=== PATIENT | female | born 1955 | race Caucasian/White ===

== ENCOUNTER 2018-01-08 08:19 | Outpatient (CLI) | payer BC | END 2018-01-08 08:20 | disposition home or self-care (01) | LOC: DI 08:19 | PROVIDERS: ATTEND Physician Assistant | DX: R01.1 Cardiac murmur, unspecified (principal) | CPT/HCPCS: 93306 ==

== ENCOUNTER 2019-05-05 07:31 | Outpatient (CLI) | payer BC ==
[2019-05-05] MEDS ORDERED: IOVERSOL 320 50 ML VIAL ONE (07:47)
[2019-05-05] MEDS ORDERED: IOVERSOL 320 100 ML VIAL IVP ONE ×3 (07:47→11:34)
[2019-05-05] MEDS ORDERED: IOVERSOL 320 50 ML VIAL PO ONE (11:34)
--- NOTE | 2019-05-05 12:23 | XRAY Report ---
Reason: ABD PAIN, COUGH Procedure Date: 05/05/2019 Accession Number: [id number] / [id number] Procedure: XR - Chest 2 View X-Ray CPT Code: 76402 FULL RESULT: EXAM: CHEST RADIOGRAPHY EXAM DATE: 05/05/2019 07:45 AM. CLINICAL HISTORY: ABD PAIN, COUGH. COMPARISON: None. TECHNIQUE: 2 views. FINDINGS: Lungs/Pleura: No focal opacities evident. No pleural effusion. No pneumothorax. Normal volumes. Mediastinum: Heart and mediastinal contours are unremarkable. Other: Mild S-shaped thoracolumbar scoliosis with slight degenerative change. IMPRESSION: Clear lungs. No acute findings. RADIA
--- NOTE | 2019-05-06 16:37 | CT Report ---
Reason: ABD PAIN, COUGH Procedure Date: 05/05/2019 Accession Number: [id number] / [id number] Procedure: CT - Abdomen/Pelvis W CPT Code: FULL RESULT: EXAM: CT ABDOMEN AND PELVIS EXAM DATE: 05/05/2019 09:25 AM. CLINICAL HISTORY: ABD PAIN, COUGH. COMPARISONS: ABDOMEN/PELVIS W/ 05/05/2019 8:55 AM. TECHNIQUE: Routine helical CT imaging was performed through the abdomen and pelvis. IV contrast: OPTI 320 150ML. Enteric contrast: No. Reconstructions: Coronal and sagittal. In accordance with CT protocol optimization, one or more of the following dose reduction techniques were utilized for this exam: automated exposure control, adjustment of mA and/or KV based on patient size, or use of iterative reconstructive technique. FINDINGS: Lung Bases: Unremarkable. Liver: Normal. No masses. Gallbladder/Bile Ducts: Unremarkable. Spleen: Normal. Pancreas: Normal. Adrenal Glands: Normal. Kidneys: Bilateral parapelvic cysts No masses or hydronephrosis. Peritoneal Cavity/Bowel: No free fluid, free air or adenopathy. No masses or acute inflammatory process. The appendix is not seen but there are no secondary signs of appendicitis.. Pelvic Organs: The bladder and pelvic organs are within normal limits. Vasculature: No aneurysms or other significant abnormality. Bones: Degenerative grade 1 anterior listhesis L4 on L5 with disk space narrowing at this level. Additional disk space narrowing L2-L3. Other: No anterior abdominal wall hernia. IMPRESSION: No acute findings or obvious explanation for pain abdomen and pelvis CT. Incidental note made of degenerative L4 anterior listhesis on L5. RADIA
== END 2019-05-05 07:32 | disposition home or self-care (01) ==
LOC: DI 07:31
PROVIDERS: ATTEND Physician Assistant
DX: R05 Cough (principal); R10.9 Unspecified abdominal pain
CPT/HCPCS: 71046; 74177; Q9967

== ENCOUNTER 2020-04-12 13:38 | Outpatient (CLI) | payer MEDICARE, BC ==
--- NOTE | 2020-04-12 17:43 | XRAY Report ---
PROCEDURE: Foot 3 View LT INDICATIONS: PAIN IN LEFT FOOT TECHNIQUE: 3 views of the foot were acquired. COMPARISON: None FINDINGS: Bones: No fractures or dislocations. No suspicious bony lesions. All dorsal and plantar calcaneal b one spurs. Mild midfoot osteoarthritis. Soft tissues: No tibiotalar joint effusion. Achilles tendon appears normal. IMPRESSION: 1. Mild mid foot osteophytosis. 2. Calcaneal bone spurs. 3. No fracture. No acute osseous lesion. If there is continued clinical concern for pathology, then r epeat plain film radiographs (7-10 days) or advanced imaging (CT, MR, bone scan) should be considered for further evaluation. Reviewed by: Jessica Pleitez MD, PhD on 04/12/2020 5:42 PM PDT Approved by: Jessica Pleitez MD, PhD on 04/12/2020 5:42 PM PDT Station ID: [id number]
== END 2020-04-12 13:39 | disposition home or self-care (01) ==
LOC: DI 13:38
PROVIDERS: ATTEND Nurse Practitioner Family
DX: M25.775 Osteophyte, left foot (principal); M77.32 Calcaneal spur, left foot

== ENCOUNTER 2022-05-19 14:19 | Outpatient (CLI) | payer MEDICARE, BC ==
--- NOTE | 2022-05-19 15:20 | DEXA Report ---
PROCEDURE: Dexa Spine and/or Hip INDICATIONS: POSTMENOPAUSAL TECHNIQUE: Dual energy x-ray absorptiometry (DXA) was performed on a [employer] System. Regions measur ed are the AP Spine, femoral neck, and if needed forearm. COMPARISON: None. FINDINGS: Lumbar Spine: Bone Mineral Density 1.456 g/cm/cm,T score 2.3, normal Left Hip: Bone Mineral Density 1.196 g/cm/cm,T score 1.5, normal Left Femoral Neck: Bone Mineral Density 1.089 g/cm/cm, T score 0.4, normal (T score greater or equal to -1.0: NORMAL) (T score from -1.1 to -2.4: OSTEOPENIA) (T score less than or equal to -2.5 to: OSTEOPOROSIS) Impression: Normal bone mineral density. Patients with diagnosis of osteoporosis or osteopenia should have regular bone mineral density assess ment. For those eligible for Medicare, routine testing is allowed once every 2 years. Testing frequ ency can be increased for patients who have rapidly progressing disease or for those who are receivin g medical therapy to restore bone mass. Reviewed by: Mounika Eden MD on 05/19/2022 3:19 PM PDT Approved by: Mounika Eden MD on 05/19/2022 3:19 PM PDT Station ID: [id number]
== END 2022-05-19 14:20 | disposition home or self-care (01) ==
LOC: DI 14:19
PROVIDERS: ATTEND Registered Nurse
DX: Z78.0 Asymptomatic menopausal state (principal)

== ENCOUNTER 2022-05-19 14:21 | Outpatient (CLI) | payer MEDICARE, BC ==
--- NOTE | 2022-05-22 10:04 | Mammography Report ---
BILATERAL DIGITAL SCREENING MAMMOGRAM 3D/2D: 05/19/2022 CLINICAL: Routine screening. Comparison is made to exams dated: 06/20/2017 mammogram and 08/19/2013 mammogram - [facility]. Both breasts are heterogeneously dense, which may obscure small masses (category c / 51-75% glandula r tissue). There are benign calcifications in the right breast. No significant masses, calcifications, or other findings are seen in either breast. There has been no significant interval change. IMPRESSION: BENIGN There is no mammographic evidence of malignancy. A 1 year screening mammogram is recommended. Based on the Tyrer Cuzick model (a risk assessment model) the patients lifetime risk is 10.5% and he r 10 year risk is 5.5%. According to the ACR, ACS, and NCCN guidelines, an annual breast MRI exam shauna ng with mammogram is recommended if the patients lifetime risk is 20% or greater. This exam was interpreted at Station ID: [id number]. NOTE: For mammograms, a report in lay terms will be sent to the patient. Approximately 15% of breast malignancies will not be visualized mammographically. In the management of a palpable breast mass, a negative mammogram must not discourage biopsy of a clinically suspicious lesion. Electronically Signed By: Joy madison/loli:05/19/2022 17:27:29 ACR BI-RADS Category 2: Benign Finding(s) 3342F PARENCHYMAL PATTERN: (D) - The breast(s) demonstrate(s) heterogeneously dense fibroglandular parcuate ma. BI-RADS CATEGORY: (2) - 2 RECOMMENDATION: (ANNUAL) - Recommend routine annual screening mammography. [id number] 1 year screening LATERALITY: (B)
== END 2022-05-19 14:22 | disposition home or self-care (01) ==
LOC: DI 14:21
PROVIDERS: ATTEND Registered Nurse
DX: Z12.31 Encounter for screening mammogram for malignant neoplasm of breast (principal)

== ENCOUNTER 2023-01-08 11:53 | Outpatient (CLI) | payer MEDICARE, BC ==
[2023-01-08] MEDS ORDERED: iohexoL-300 100 ML VIAL ONE (13:26)
[2023-01-08] MEDS ORDERED: DIATRIZOATE MEGLU/DIATRIZO SOD 30 ML BOTTLE PO ONE (15:13)
[2023-01-08] MEDS ORDERED: iohexoL-300 100 ML VIAL IVP ONE (15:14)
--- NOTE | 2023-01-13 23:51 | CT Report ---
PROCEDURE: ABDOMEN/PELVIS W INDICATIONS: ABN ADM CT CONTRAST: 100ml Omnipaque 300 TECHNIQUE: After the administration of oral and intravenous contrast, 5 mm thick sections acquired from the diap hragms to the symphysis. 5 mm thick coronal and sagittal reformats were acquired. For radiation dos e reduction, the following was used: automated exposure control, adjustment of mA and/or kV accordin g to patient size. COMPARISON: Report from CT abdomen pelvis 08/28/2022. CT abdomen pelvis 05/05/2019. FINDINGS: Image quality: Excellent. Lung bases and heart: Punctate pulmonary nodule in the left lower lobe, unchanged. No pleural effusio n. Liver: No solid mass. Gallbladder and biliary tree: No radiopaque stones or wall thickening. No biliary dilation. Spleen: No splenomegaly. Small splenules. Pancreas: No pancreatic ductal dilation. No peripancreatic fluid collection. Adrenals: No adrenal nodule. Kidneys and ureters: No convincing hydronephrosis. Bilateral peripelvic cysts. No solid mass. Bowel and peritoneum: No small bowel obstruction. No significant diverticulosis. Somewhat prominent s tool in the colon. The visualized portions of the appendix are dilated, (3/58). The appendix appears similar to 2019. The stomach is not distended. No ascites. Lymph nodes: No central or retroperitoneal adenopathy. Vessels: No infrarenal aortic aneurysm. PELVIS Reproductive organs: Anteverted uterus. Bladder: No abnormal wall thickening, accounting for underdistention. Pelvic lymph nodes: No pelvic adenopathy by size criteria. Bones: No aggressive osseous abnormality. DDD. Other: No significant ventral or inguinal hernia. IMPRESSION: 1. Visualized portions of the appendix are not dilated. No acute inflammatory change. No free fluid. 2. Benign renal peripelvic cysts. Reviewed by: Tavon Hodgson MD on 01/13/2023 11:50 PM PDT Approved by: Tavon Hodgson MD on 01/13/2023 11:50 PM PDT Station ID: [id number]
== END 2023-01-08 11:54 | disposition home or self-care (01) ==
LOC: DI 11:53
PROVIDERS: ATTEND Registered Nurse
DX: R93.5 Abnormal findings on diagnostic imaging of other abdominal regions, including retroperitoneum (principal)
CPT/HCPCS: 36415; 74177; 82565; Q9963; Q9967

== ENCOUNTER 2023-01-08 11:53 | Outpatient (CLI) | payer MEDICARE, BC ==
[2023-01-08 12:22] LABS: CREATININE 0.8 mg/dL (0.4-1.0)
== END 2023-01-08 11:54 | disposition home or self-care (01) ==
LOC: LAB 11:53
PROVIDERS: ATTEND Registered Nurse
DX: R93.5 Abnormal findings on diagnostic imaging of other abdominal regions, including retroperitoneum (principal)
CPT/HCPCS: 36415; 82565

== ENCOUNTER 2024-02-05 08:05 | Day surgery (SDC) | payer MEDICARE, BC ==
[~2024-02-05 08:05] MED LIST: MAGNESIUM CITRATE 296 ML BOTTLE PO ONE
[2024-02-05] MEDS: LACTATED RINGERS 1,000 ML IV ONE ×2 (08:25→13:24)
[2024-02-05] MEDS ORDERED: PROPOFOL 500 MG/50 ML 500 MG/50 ML VIAL ONE (12:33)
[2024-02-05 14:01] VITALS: BP 118/79; O2SAT 98
--- NOTE | 2024-02-05 14:21 | ANESTHESIA POST OP EVALUATION ---
Anesthesia Post Eval - Post Anesthesia Eval Vitals: Last Vital Signs Temp 36.6 C 02/05/24 13:24 Pulse 83 02/05/24 13:51 Resp 17 02/05/24 13:51 BP 118/79 02/05/24 13:51 Pulse Ox 98 02/05/24 13:51 O2 Flow Rate CV Function Including HR & BP: Stable Pain Control: Satisfactory Nausea & Vomiting: Negative Mental Status: Baseline Respiratory Status: Airway Patent Hydration Status: Satisfactory Anesthesia Complications: None
== END 2024-02-05 08:06 | disposition home or self-care (01) ==
LOC: SDS 08:05
PROVIDERS: ATTEND Surgery
PROC: 0DBN8ZZ Excision of Sigmoid Colon, Via Natural or Artificial Opening Endoscopic (ICD-10-PCS; 2024-02-05)
PROC: 0DBM8ZZ Excision of Descending Colon, Via Natural or Artificial Opening Endoscopic (ICD-10-PCS; 2024-02-05)
PROC: 0DBK8ZZ Excision of Ascending Colon, Via Natural or Artificial Opening Endoscopic (ICD-10-PCS; principal; 2024-02-05 12:45)
DX: Z12.11 Encounter for screening for malignant neoplasm of colon (principal); D12.2 Benign neoplasm of ascending colon; D12.4 Benign neoplasm of descending colon; K63.5 Polyp of colon
CPT/HCPCS: 45380; A9270; J7120

== ENCOUNTER 2024-03-10 09:42 | Outpatient (CLI) | payer MEDICARE, BC ==
--- NOTE | 2024-03-10 13:08 | CT Report ---
PROCEDURE: Chest WO INDICATIONS: MULTIPLE LUNG NODULES TECHNIQUE: A CT scan of the chest was performed. Intravenous contrast media was not administered. Images were re corded and evaluated at appropriate window settings. Reformats: axial MIP of the chest, coronal and s agittal. For radiation dose reduction, the following was used: automated exposure control, adjustment of mA and/or kV according to patient size. COMPARISON: None. FINDINGS: Image quality: Diagnostic. Chest wall and lower neck: No thyroid nodule which requires sonographic follow up. No axillary or sup raclavicular adenopathy by size. Lungs and pleura: No consolidation. No pleural effusions. No pneumothorax. Stable juxtapleural nodul es with smooth margins, favoring benign intrapulmonary lymph nodes. Calcified granuloma are present. Mediastinum: Heart size is normal. No pericardial effusion. No large vessel abnormality. No mediastin al adenopathy by size criteria. Bones: Vertebral hemangioma in the T4 vertebral body. Upper Abdomen: Unremarkable. IMPRESSION: Stable pulmonary nodules, which are statistically benign. No further follow-up is indicated per Fleluh bardales's study guidelines. Reviewed by: Markell Mendosa MD on 03/10/2024 1:06 PM PDT Approved by: Markell Mendosa MD on 03/10/2024 1:06 PM PDT Station ID: [id number]
== END 2024-03-10 09:43 | disposition home or self-care (01) ==
LOC: DI 09:42
PROVIDERS: ATTEND Registered Nurse
DX: R91.8 Other nonspecific abnormal finding of lung field (principal)